=== PATIENT | female | born 1975 | race Caucasian/White ===

== ENCOUNTER 2022-04-06 10:17 | Emergency (ER) | payer OTHER ==
[~2022-04-06] VITALS: Ht 162.6 cm; Wt 75.5 kg
[2022-04-06] MEDS ORDERED: HydrOXYzine HCL 25 MG TABLET PO ONE (11:00)
[2022-04-06 11:05] VITALS: BP 157/100
[2022-04-06] MEDS ORDERED: HYDR-4527 PO (11:13)
== END 2022-04-06 11:41 | disposition home or self-care (01) ==
LOC: EMS 10:23
DX: F41.9 Anxiety disorder, unspecified (principal); F32.9 Major depressive disorder, single episode, unspecified; F10.20 Alcohol dependence, uncomplicated; F12.90 Cannabis use, unspecified, uncomplicated
CPT/HCPCS: 99283

== ENCOUNTER 2022-06-03 05:28 | Emergency (ER) | payer OTHER ==
[~2022-06-03] VITALS: Ht 162.6 cm; Wt 77.3 kg
[~2022-06-03 05:28] MED LIST: HYDR-4527 PO
[2022-06-03 05:59] LABS: COVID AG,FIA SOURCE NASAL SWAB
[2022-06-03 06:07] VITALS: BP 124/89
[2022-06-03] MEDS ORDERED: GuaiFENesin/D-METHORPHAN [SUGAR-FREE] 200-20MG/10 ML SYRUP UDCUP PO ONE (06:15)
[2022-06-03] MEDS ORDERED: IBUPROFEN 600 MG TABLET PO ONE (06:15)
[2022-06-03] MEDS ORDERED: ACETAMINOPHEN/CODEINE 300-30 MG TABLET PO ONE (06:15)
[2022-06-03 06:23] LABS: INFLUENZA TYPE A NEGATIVE FOR TYPE A (NEGATIVE); INFLUENZA TYPE B NEGATIVE FOR TYPE B (NEGATIVE)
[2022-06-03] MEDS ORDERED: GUAIFDM PO (06:36)
[2022-06-03] MEDS ORDERED: IBUP-1554 PO (06:36)
[2022-06-03] MEDS ORDERED: ACET-2080 PO (06:36)
== END 2022-06-03 06:58 | disposition home or self-care (01) ==
LOC: EMS 05:29
DX: U07.1 COVID-19 (principal); J06.9 Acute upper respiratory infection, unspecified; F32.A Depression, unspecified; F12.90 Cannabis use, unspecified, uncomplicated
CPT/HCPCS: 87804; 99284; Z7502; Z7610

== ENCOUNTER 2022-07-25 17:08 | Emergency (ER) | payer OTHER ==
[~2022-07-25] VITALS: Ht 160 cm; Wt 74.5 kg
[~2022-07-25 17:08] MED LIST changes: +ACET-2080 PO; +GUAIFDM PO; +IBUP-1554 PO
[2022-07-25] MEDS ORDERED: ESCI-8 PO (17:21)
[2022-07-25] MEDS ORDERED: FERR325T27 PO (17:21)
[2022-07-25 19:00] VITALS: BP 157/104
[2022-07-25] MEDS ORDERED: HYDR-4808 PO (19:05)
[2022-07-25] MEDS ORDERED: HYDROCODONE/ACETAMINOPHEN 5-325 MG TABLET PO ONE (19:15)
== END 2022-07-25 19:31 | disposition home or self-care (01) ==
LOC: EMS 17:12
DX: S60.012A Contusion of left thumb without damage to nail, initial encounter (principal); F32.A Depression, unspecified; F12.90 Cannabis use, unspecified, uncomplicated; X58.XXXA Exposure to other specified factors, initial encounter; Y93.89 Activity, other specified; Y92.89 Other specified places as the place of occurrence of the external cause; Y99.8 Other external cause status
CPT/HCPCS: 99283

== ENCOUNTER 2022-09-27 12:51 | Emergency (ER) | payer OTHER ==
[~2022-09-27] VITALS: Ht 160 cm; Wt 77.3 kg
[~2022-09-27 12:51] MED LIST changes: -ACET-2080 PO; +ESCI-8 PO; +FERR325T27 PO; -GUAIFDM PO; -HYDR-4527 PO; +HYDR-4808 PO
[2022-09-27] MEDS ORDERED: ACETAMINOPHEN 500 MG TABLET PO ONE (15:30)
[2022-09-27] MEDS ORDERED: MECLIZINE HCL 25 MG TABLET PO ONE (15:30)
[2022-09-27 15:47] LABS: BASOPHILS % (AUTO) 0.5 % (0.0-2.0); EOSINOPHILS % (AUTO) 3.5 % (1.0-6.0); HEMATOCRIT 38.5 % (36-46); HEMOGLOBIN 13.1 g/dL (12.0-16.0); LYMPHOCYTES # (AUTO) 2.6 K/uL (1.0-4.8); LYMPHOCYTES % (AUTO) 37.9 % (22.0-44.0); MEAN CORPUSCULAR HEMOGLOBIN 29.3 pg (26.0-34.0); MEAN CORPUSCULAR HGB CONC 33.9 G/dL (31.0-37.0); MEAN CORPUSCULAR VOLUME 86 fL (80-100); MONOCYTES # (AUTO) 0.5 K/uL (0.1-1.0); MONOCYTES % (AUTO) 7.6 % (2.0-9.0); NEUTROPHILS # (AUTO) 3.4 K/uL (1.8-7.7); NEUTROPHILS % (AUTO) 50.5 % (40.0-70.0); PLATELET COUNT (AUTO) 244 K/uL (150-450); RED BLOOD CELL COUNT(AUTO) 4.46 MIL/uL (4.00-5.20); RED CELL DISTRIBUTION WIDTH 14.4 % (11.5-14.5)
[2022-09-27 15:55] LABS: ANION GAP 5 mmol/L (8-16); CALCIUM, TOTAL 8.9 mg/dL (8.8-10.5); CARBON DIOXIDE 29 mmol/L (22-29); CHLORIDE 104 mmol/L (98-107); CREATININE 0.71 mg/dL (0.60-1.30); GLOMERULAR FILTR. RATE CALC > 60 mL/min (>60); GLUCOSE,RANDOM 90 mg/dL (70-110); POTASSIUM 3.8 mmol/L (3.5-5.1); SODIUM SERUM 138 mmol/L (136-145); UREA NITROGEN, BLOOD 8 mg/dL (7-18)
[2022-09-27 16:15] VITALS: BP 146/92
[2022-09-27] MEDS ORDERED: MECL-110 PO (16:30)
== END 2022-09-27 16:40 | disposition home or self-care (01) ==
LOC: EMS 13:17
DX: R51.9 Headache, unspecified (principal); R42 Dizziness and giddiness; F32.A Depression, unspecified; F12.90 Cannabis use, unspecified, uncomplicated
CPT/HCPCS: 80048; 84484; 84703; 85025; 93005; 99284

== ENCOUNTER 2023-03-22 10:50 | Emergency (ER) | payer OTHER ==
[~2023-03-22] VITALS: Ht 157.5 cm; Wt 77.3 kg
[~2023-03-22 10:50] MED LIST changes: -IBUP-1554 PO; +MECL-110 PO
[2023-03-22 10:59] VITALS: TEMP 98.3
[2023-03-22] MEDS ORDERED: TRAZ-257 PO (11:00)
[2023-03-22] MEDS ORDERED: ACETAMINOPHEN 500 MG TABLET PO ONE (11:15)
[2023-03-22] MEDS ORDERED: LIDOCAINE 5% TRANSDERMAL PATCH TD ONE (11:15)
[2023-03-22 11:27] LABS: BASOPHILS % (AUTO) 0.3 % (0.0-2.0); EOSINOPHILS % (AUTO) 3.9 % (1.0-6.0); HEMATOCRIT 38.3 % (36-46); HEMOGLOBIN 13.3 g/dL (12.0-16.0); LYMPHOCYTES # (AUTO) 2.1 K/uL (1.0-4.8); LYMPHOCYTES % (AUTO) 30.6 % (22.0-44.0); MEAN CORPUSCULAR HEMOGLOBIN 30.8 pg (26.0-34.0); MEAN CORPUSCULAR HGB CONC 34.8 G/dL (31.0-37.0); MEAN CORPUSCULAR VOLUME 89 fL (80-100); MONOCYTES # (AUTO) 0.5 K/uL (0.1-1.0); MONOCYTES % (AUTO) 7.3 % (2.0-9.0); NEUTROPHILS # (AUTO) 3.9 K/uL (1.8-7.7); NEUTROPHILS % (AUTO) 57.9 % (40.0-70.0); PLATELET COUNT (AUTO) 230 K/uL (150-450); RED BLOOD CELL COUNT(AUTO) 4.32 MIL/uL (4.00-5.20); RED CELL DISTRIBUTION WIDTH 12.7 % (11.5-14.5); WHITE BLOOD COUNT (AUTO) 6.8 K/uL (4.5-11.0)
[2023-03-22 11:35] LABS: ANION GAP 9 mmol/L (8-16); CALCIUM, TOTAL 9.2 mg/dL (8.8-10.5); CARBON DIOXIDE 28 mmol/L (22-29); CHLORIDE 104 mmol/L (98-107); CREATININE 0.65 mg/dL (0.60-1.30); GLOMERULAR FILTR. RATE CALC > 60 mL/min (>60); GLUCOSE,RANDOM 108 mg/dL (70-110); SODIUM SERUM 141 mmol/L (136-145); UREA NITROGEN, BLOOD 10 mg/dL (7-18)
[2023-03-22 11:40] LABS: ALANINE AMINOTRANSFERASE 11 U/L (12-78); ALBUMIN 3.4 g/dL (3.4-5.0); ALKALINE PHOSPHATASE 82 U/L (46-116); ASPARTATE AMINOTRANSFERASE 12 U/L (15-37); BILIRUBIN,TOTAL 0.3 mg/dL (0.1-1.0); LIPASE 108 U/L (16-77); TOTAL PROTEIN, SERUM 7.4 g/dL (6.4-8.2)
[2023-03-22] MEDS ORDERED: IOHEXOL 350 MG/ML 100 ML VIAL ONE (11:41)
[2023-03-22] MEDS ORDERED: SODIUM CHLORIDE 0.9% 100 ML ONE (11:41)
[2023-03-22 12:39] VITALS: BP 149/87; PULSE 66; RESP 15
[2023-03-22] MEDS ORDERED: ACET-3385 PO (12:54)
[2023-03-22] MEDS ORDERED: IBUP-1492 PO (12:54)
== END 2023-03-22 13:07 | disposition home or self-care (01) ==
LOC: EMS 11:20
DX: R10.12 Left upper quadrant pain (principal); F32.A Depression, unspecified; F12.90 Cannabis use, unspecified, uncomplicated; R11.2 Nausea with vomiting, unspecified; Z98.890 Other specified postprocedural states
CPT/HCPCS: 99285; 74177; 80053; 83690; 84703; 85025; 36415; 93005; Q9967; J7050

== ENCOUNTER 2023-06-27 01:56 | Emergency (ER) | payer OTHER ==
[~2023-06-27] VITALS: Ht 162.6 cm; Wt 80.0 kg
[~2023-06-27 01:56] MED LIST changes: +ACET-3385 PO; +IBUP-1492 PO; -MECL-110 PO; +TRAZ-257 PO
[2023-06-27 02:00] VITALS: BP 145/86; PULSE 98; RESP 15; TEMP 98.3
[2023-06-27] MEDS ORDERED: IBUPROFEN 600 MG TABLET PO ONE (02:15)
[2023-06-27] MEDS ORDERED: ACETAMINOPHEN 500 MG TABLET PO ONE (02:15)
[2023-06-27] MEDS ORDERED: ONDANSETRON HCL 4 MG TABLET PO ONE (02:15)
[2023-06-27 02:58] LABS: COVID AG,FIA SOURCE NASAL SWAB
[2023-06-27] MEDS ORDERED: IBUP-1492 PO (03:00)
[2023-06-27] MEDS ORDERED: ACET-3385 PO (03:00)
[2023-06-27] MEDS ORDERED: ONDA-104 PO (03:17)
[2023-06-27 03:19] LABS: INFLUENZA TYPE A NEGATIVE FOR TYPE A (NEGATIVE); INFLUENZA TYPE B NEGATIVE FOR TYPE B (NEGATIVE)
[2023-06-27 03:48] LABS: SARS-COV2 (COVID) ANTIGEN,FIA Positive (Negative)
== END 2023-06-27 04:28 | disposition home or self-care (01) ==
LOC: EMS 01:58
DX: U07.1 COVID-19 (principal); F32.A Depression, unspecified; F12.90 Cannabis use, unspecified, uncomplicated
CPT/HCPCS: 99284; 87426; 87430; 87804; Q0162

== ENCOUNTER 2024-02-25 10:31 | Emergency (ER) | payer OTHER ==
[~2024-02-25] VITALS: Ht 162.6 cm; Wt 85.5 kg
[~2024-02-25 10:31] MED LIST changes: +ONDA-104 PO
[2024-02-25] MEDS ORDERED: LOSA-381 PO (10:34)
[2024-02-25] MEDS ORDERED: ESCI20TA87 PO (10:34)
[2024-02-25 10:36] VITALS: BP 130/79; PULSE 112; RESP 18; TEMP 98.2; O2SAT 98
[2024-02-25 12:01] LABS: BASOPHILS % (AUTO) 0.5 % (0.0-2.0); EOSINOPHILS % (AUTO) 3.2 % (1.0-6.0); HEMATOCRIT 38.3 % (36-46); HEMOGLOBIN 12.7 g/dL (12.0-16.0); LYMPHOCYTES # (AUTO) 1.8 K/uL (1.0-4.8); LYMPHOCYTES % (AUTO) 29.9 % (22.0-44.0); MEAN CORPUSCULAR HEMOGLOBIN 26.9 pg (26.0-34.0); MEAN CORPUSCULAR HGB CONC 33.1 G/dL (31.0-37.0); MEAN CORPUSCULAR VOLUME 81 fL (80-100); MONOCYTES # (AUTO) 0.5 K/uL (0.1-1.0); MONOCYTES % (AUTO) 8.4 % (2.0-9.0); NEUTROPHILS # (AUTO) 3.5 K/uL (1.8-7.7); PLATELET COUNT (AUTO) 292 K/uL (150-450); RED CELL DISTRIBUTION WIDTH 14.9 % (11.5-14.5); WHITE BLOOD COUNT (AUTO) 6.1 K/uL (4.5-11.0)
[2024-02-25 12:11] LABS: ANION GAP 9 mmol/L (8-16); CALCIUM, TOTAL 8.8 mg/dL (8.8-10.5); CARBON DIOXIDE 25 mmol/L (22-29); CHLORIDE 103 mmol/L (98-107); CREATININE 0.84 mg/dL (0.60-1.30); GLOMERULAR FILTR. RATE CALC > 60 mL/min (>60); GLUCOSE,RANDOM 98 mg/dL (70-110); POTASSIUM 4.1 mmol/L (3.5-5.1); SODIUM SERUM 137 mmol/L (136-145); UREA NITROGEN, BLOOD 11 mg/dL (7-18)
[2024-02-25 12:32] LABS: ALANINE AMINOTRANSFERASE 12 U/L (12-78); ALBUMIN 3.4 g/dL (3.4-5.0); ALKALINE PHOSPHATASE 103 U/L (46-116); ASPARTATE AMINOTRANSFERASE 17 U/L (15-37); BILIRUBIN,TOTAL 0.6 mg/dL (0.1-1.0); TOTAL PROTEIN, SERUM 8.2 g/dL (6.4-8.2)
== END 2024-02-25 13:28 | disposition home or self-care (01) ==
LOC: EMS 10:31
DX: L29.9 Pruritus, unspecified (principal); M25.512 Pain in left shoulder; F32.A Depression, unspecified; I10 Essential (primary) hypertension; F12.90 Cannabis use, unspecified, uncomplicated; Z98.890 Other specified postprocedural states
CPT/HCPCS: 80048; 80076; 85025; 99284